=== PATIENT | female | born 1940 | race Two or more races ===

== ENCOUNTER 2022-11-05 15:15 | Emergency (ER) | payer OTHER ==
[~2022-11-05] VITALS: Ht 149.9 cm; Wt 63.5 kg
[2022-11-05] MEDS ORDERED: VASOTEC10 MG PO (15:34)
[2022-11-05] MEDS ORDERED: VASOTEC20 MG PO (15:35)
[2022-11-05] MEDS ORDERED: CIPROFLOXACIN500 MG PO (15:35)
== END 2022-11-05 19:35 | disposition home or self-care (01) ==
LOC: ER 15:15
DX: S09.8XXA Other specified injuries of head, initial encounter (principal); W07.XXXA Fall from chair, initial encounter; Y93.89 Activity, other specified; Y92.481 Parking lot as the place of occurrence of the external cause